=== PATIENT | male | born 1945 | race Caucasian/White ===

== ENCOUNTER 2017-03-20 12:42 | Outpatient (CLI) | payer MEDICARE ==
[~2017-03-20] VITALS: Ht 177.8 cm; Wt 77.1 kg
[~2017-03-20 12:42] MED LIST: ASPI1TAB PO; ATOR1TAB21 PO; AZEL0.055; FISH1000 PO; FLUT1SPR2; LISI-538 PO; MONT10TA2 PO; MULT1TAB10 PO; PRIL20CA9 PO
[2017-03-20] MEDS ORDERED: NS 1,000 ML IV ONE (13:00)
[2017-03-20] MEDS ORDERED: PROPOFOL 200 MG/20 ML VIAL As Ordered ONE (13:46)
[2017-03-20] MEDS ORDERED: LIDOCAINE 2% INJ 100 MG/5 ML SDV (FOR ANES.) As Ordered ONE (13:46)
--- NOTE | 2017-03-20 14:09 | ROOR ---
Patient Name: Porfirio Cortez Procedure Date: 03/20/2017 1:42 PM Date of : 1945 Age: 71 Room: [facility] Gender: Male Note Status: Finalized Procedure: Total Colonoscopy to Cecum + Cold Snare Polypectomy Indications: Screening for colorectal malignant neoplasm Providers: Seb Colon MD Referring MD: MICHELLE PEREZ JR, MD Requesting Provider: Medicines: Monitored Anesthesia Care Complications: No immediate complications. Procedure: Pre-Anesthesia Assessment: - The heart rate, respiratory rate, oxygen saturations, blood pressure, adequacy of pulmonary ventilation, and response to care were monitored throughout the procedure. The Colonoscope was introduced through the anus and advanced to the cecum, identified by appendiceal orifice and ileocecal valve. The colonoscopy was performed without difficulty. The patient tolerated the procedure well. The quality of the bowel preparation was good. Findings: The perianal and digital rectal examinations were normal. Non-bleeding internal hemorrhoids were found during retroflexion. The hemorrhoids were small and Grade I (internal hemorrhoids that do not prolapse). Multiple small and large-mouthed diverticula were found in the recto-sigmoid colon, sigmoid colon and descending colon. Multiple sessile polyps were found in the cecum. The polyps were small in size. These polyps were removed with a cold snare. Resection and retrieval were complete. The exam was otherwise without abnormality on direct and retroflexion views. Impression: - Non-bleeding internal hemorrhoids. - Diverticulosis in the recto-sigmoid colon, in the sigmoid colon and in the descending colon. - Multiple small polyps in the cecum, removed with a cold snare. Resected and retrieved. - The examination was otherwise normal on direct and retroflexion views. - The exam was otherwise normal to the cecum. Recommendation: - Patient has a contact number available for emergencies. The signs and symptoms of potential delayed complications were discussed with the patient. Return to normal activities tomorrow. Written discharge instructions were provided to the patient. - High fiber diet. - Discharge patient to home. - Continue present medications. - Await pathology results. - Telephone GI clinic for pathology results in 1 week. - Repeat colonoscopy for symptoms only. - Return to referring physician. - The findings and recommendations were discussed with the patient's family. Seb Colon MD Seb Colon MD 03/20/2017 2:08:59 PM This report has been signed electronically. Number of Addenda: 0 Note Initiated On: 03/20/2017 1:42 PM Estimated Blood Loss: Estimated blood loss: none.
[2017-03-20 14:48] VITALS: BP 112/68
== END 2017-03-20 14:50 | disposition home or self-care (01) ==
LOC: M OPP 12:42
PROVIDERS: ATTEND Internal Medicine Gastroenterology
DX: Z12.11 Encounter for screening for malignant neoplasm of colon (principal); D12.0 Benign neoplasm of cecum; K64.0 First degree hemorrhoids; K57.30 Diverticulosis of large intestine without perforation or abscess without bleeding; I25.10 Atherosclerotic heart disease of native coronary artery without angina pectoris; I10 Essential (primary) hypertension; E78.5 Hyperlipidemia, unspecified; R12 Heartburn; M54.9 Dorsalgia, unspecified; F32.9 Major depressive disorder, single episode, unspecified; Z85.46 Personal history of malignant neoplasm of prostate; L29.0 Pruritus ani; Z95.1 Presence of aortocoronary bypass graft; Z87.891 Personal history of nicotine dependence; Z79.899 Other long term (current) drug therapy; Z79.82 Long term (current) use of aspirin

== ENCOUNTER 2018-10-09 10:37 | Emergency (ER) | payer MEDICARE ==
[~2018-10-09] VITALS: Ht 175.3 cm; Wt 78.9 kg
[~2018-10-09 10:37] MED LIST changes: -ASPI1TAB PO; +ASPI81TA26 PO
[2018-10-09] MEDS ORDERED: COLA100C5 PO (11:44)
[2018-10-09] MEDS ORDERED: PREP1CRE TOP (11:44)
[2018-10-09 11:59] VITALS: BP 141/65
== END 2018-10-09 12:00 | disposition home or self-care (01) ==
LOC: M ED 10:37
DX: K64.9 Unspecified hemorrhoids (principal); I10 Essential (primary) hypertension; F32.9 Major depressive disorder, single episode, unspecified; Z85.46 Personal history of malignant neoplasm of prostate; Z79.899 Other long term (current) drug therapy; Z79.82 Long term (current) use of aspirin

== ENCOUNTER → 2020-01-20 | Outpatient (CLI) | payer MEDICARE ==
[~2020-01-20] MED LIST changes: +COLA100C5 PO; +HYDR26CR TOP; -MONT10TA2 PO; +MONT10TA4 PO
== END ==
LOC: M LABSMTC 10:30
PROVIDERS: ATTEND Ophthalmology
DX: Z11.59 Encounter for screening for other viral diseases (principal); Z20.828 Contact with and (suspected) exposure to other viral communicable diseases
CPT/HCPCS: C9803; U0003

== ENCOUNTER → 2020-02-24 | Outpatient (CLI) | payer MEDICARE | LOC: M LABSMTC 10:43 | PROVIDERS: ATTEND Ophthalmology | DX: Z11.59 Encounter for screening for other viral diseases (principal) | CPT/HCPCS: C9803; U0003 ==

== ENCOUNTER 2025-01-22 12:43 | Emergency (ER) | payer OTHER, MEDICARE ==
[~2025-01-22] VITALS: Ht 177.8 cm; Wt 73.5 kg
[~2025-01-22 12:43] MED LIST changes: -AZEL0.055; +AZEL1SPR4; -LISI-538 PO; +LISI20TA33 PO; -MONT10TA4 PO; +MONT10TA97 PO
[2025-01-22 14:12] LABS: APPEARANCE, URINE CLEAR (CLEAR); BACTERIA, URINE AUTO NEGATIVE (NEGATIVE); BILIRUBIN, URINE AUTO NEGATIVE (NEGATIVE); BLOOD, URINE BLOOD NEGATIVE (NEGATIVE); GLUCOSE, URINE (UA) AUTO NEGATIVE (NEGATIVE); KETONE, URINE AUTO NEGATIVE (NEGATIVE); LEUKOCYTE ESTERASE, URINE AUTO NEGATIVE (NEGATIVE); NITRITE, URINE AUTO NEGATIVE (NEGATIVE); PROTEIN, URINE AUTO 2+ mg/dL (NEGATIVE); RBC, URINE AUTO 1 /HPF (0-3); SPECIFIC GRAVITY URINE AUTO 1.010 (1.002-1.035); SQUAMOUS EPITHELIAL CELL UR AU 0 /HPF (0-6); UROBILINOGEN, URINE AUTO 0.2 mg/dL (0.0-2.0); WBC, URINE AUTO 0 /HPF (0-3)
[2025-01-22 14:17] LABS: BASO # 0.1 10^3/uL (0.0-0.2); BASO % 0.8 % (0.0-1.0); EOS # 0.1 10^3/uL (0.0-0.5); EOS % 1.5 % (0.0-3.0); LYMPH # 1.5 10^3/uL (1.5-5.0); LYMPH % 20.3 % (24.0-44.0); MONO # 0.4 10^3/uL (0.0-0.8); MONO % 5.6 % (2.0-8.0); NEUTROPHILS # 5.4 10^3/uL (1.5-8.5); NEUTROPHILS % 71.5 % (36.0-66.0); PLATELET COUNT, AUTOMATED 238 10^3/uL (150-450)
[2025-01-22 14:51] LABS: ALT/SGPT 26.0 U/L (7.0-40); AST/SGOT 22.0 U/L (<34); CALCIUM LEVEL 9.4 MG/DL (8.3-10.6); CARBON DIOXIDE LEVEL 28.0 MMOL/L (20-31); CHLORIDE LEVEL 108.0 MMOL/L (98-107); CREATININE FOR GFR 0.89 MG/DL (0.70-1.30); GLOMERULAR FILTRATION RATE 86.6 (>35); POTASSIUM SERUM 4.5 MMOL/L (3.5-5.1); SODIUM LEVEL 147.0 MMOL/L (136-145)
[2025-01-22] MEDS: ACETAMINOPHEN 325 MG TAB PO ONE (15:30)
[2025-01-22 15:41] LABS: CK-MB VALUE MASS 1.0 NG/ML (<3.6)
[2025-01-22 15:44] LABS: CPK CREATINE PHOSPHOKINASE 38.0 U/L (46-171); MB/CK RELATIVE INDEX 2.63 (< OR =4)
[2025-01-22 17:26] VITALS: BP 158/89; TEMP 97.1; O2SAT 99
[2025-01-22] MEDS ORDERED: PRED20TA PO (17:53)
[2025-01-22] MEDS ORDERED: CETI10CH PO (17:53)
== END 2025-01-22 18:09 | disposition home or self-care (01) ==
LOC: M ED 12:43
DX: R51.9 Headache, unspecified (principal); I10 Essential (primary) hypertension; I44.0 Atrioventricular block, first degree; Z86.79 Personal history of other diseases of the circulatory system; Z85.46 Personal history of malignant neoplasm of prostate; Z79.82 Long term (current) use of aspirin; Z79.02 Long term (current) use of antithrombotics/antiplatelets; Z79.52 Long term (current) use of systemic steroids; Z79.899 Other long term (current) drug therapy